=== PATIENT | female | born 1975 | race Caucasian/White ===

== ENCOUNTER 2025-02-04 12:05 | Inpatient (IN) | payer MEDICARE, MEDICAID, SELFPAY ==
[2025-02-04] VITALS (13 sets, daily range): BP systolic 116–158; BP diastolic 62–94; PULSE 82–127; RESP 18–26; TEMP 36.6–37; O2SAT 91–98; BMI 25.1
--- NOTE | ~2025-02-04 | XR_ITS ---
EXAMINATION: XR CHEST CLINICAL INFORMATION: SOB COMPARISON: None available. TECHNIQUE: AP view of the chest was obtained. FINDINGS: The cardiac, hilar, and mediastinal contours are normal. The lungs are are well inspired and clear bilaterally. No pneumothorax or effusion. No focal osseous or soft tissue abnormality. XR/XR chest 1V IMPRESSION: No active pulmonary disease. Electronically signed by: Nav Ramsay MD 02/04/2025 01:22 PM EDT
--- NOTE | 2025-02-04 12:10 | ED.SOB ---
HPI - SOB/Dyspnea General Chief Complaint: Dyspnea Stated Complaint: diff breathing, asthma Time Seen by Provider: 02/04/25 12:19 History of Present Illness ED Provider: Dr. Thomason HPI Narrative: 50 y/o F patient; PMH asthma; presents from Urgent Care with report of persistent shortness of breath. The patient states she had to go to Urgent Care yesterday and today for her breathing. She received steroids and breathing treatments, then was referred to the emergency department for further evaluation. Patient states she has not been taking her maintenence inhaler. She otherwise denies: fever or chills, nausea/vomiting, diarrhea. No known sick contacts. No recent travel. Related Data Home Medications ?Medication ?Instructions ?Recorded ?Confirmed albuterol sulfate 90 mcg/actuation 2 puff inhalation Q4H PRN wheezing 02/04/25 02/04/25 aerosol inhaler (Ventolin HFA) aripiprazole 10 mg tablet 10 mg PO DAILY 02/04/25 02/04/25 benzonatate 200 mg capsule 200 mg PO TID cough 02/04/25 02/04/25 fluticasone propionate 50 2 spray intranasal BID 02/04/25 02/04/25 mcg/actuation nasal spray,suspension hydroxyzine pamoate 25 mg capsule 25 - 50 mg PO TID PRN anxiety 02/04/25 02/04/25 ibuprofen 800 mg tablet 800 mg PO TID PRN pain 02/04/25 02/04/25 meloxicam 15 mg tablet 15 mg PO DAILY 02/04/25 02/04/25 methylphenidate HCl 18 mg 18 mg PO DAILY 02/04/25 02/04/25 tablet,extended release 24 hr methylphenidate HCl 54 mg 54 mg PO DAILY 02/04/25 02/04/25 tablet,extended release 24 hr prednisone 20 mg tablet 40 mg PO DAILY 02/04/25 02/04/25 venlafaxine 150 mg 300 mg PO DAILY 02/04/25 02/04/25 capsule,extended release 24 hr Allergies Allergy/AdvReac Type Severity Reaction Status Date / Time No Known Allergies (No Known Allergy Unverified 02/04/25 12:12 Allergies*) Review of Systems Review of Systems: Yes all other systems are reviewed and are negative PMFSH Past Medical History Attestation statement: The following information was validated with the patient. Source: unable to obtain Social History Social History Smoked in Last 30 Days: Yes Use of substances other than those prescribed or required for medical reasons: No Advance Directives: Yes Advance Directives Information Provided: Yes Advance Directives on File: No Physical Exam Vital Signs: Vital Signs: Last Vital Signs Temp 98.6 F 02/04/25 12:08 Pulse 105 H 02/04/25 14:43 Resp 20 02/04/25 14:43 BP 116/68 02/04/25 14:43 Pulse Ox 92 02/04/25 14:43 O2 Del Method Room Air 02/04/25 14:43 BMI result Body Mass Index 25.1 Patient is afebrile, tachypnic, hypoxic to 91% on RA. Const: General: cooperative and no acute distress HEENT: Head: Yes normal to inspection and Yes atraumatic Eyes: General: appearance normal, both eyes and all related structures Pupils: Equal, round and reactive pupils present EOM: EOMs intact bilaterally Neck: Neck: Yes normal visual inspection, Yes full ROM, Yes supple and No tender Chest: Chest palpation & inspection: normal inspection of the chest and normal palpation of entire chest wall Resp: Other: Speaking in halting sentences, diffuse biphasic wheezing, diminished bilaterally Cardio: Rate: regular rate Rhythm: regular rhythm Peripheral pulses: Peripheral pulses 2+ throughout GI: Inspection: Yes normal to inspection, No Abdominal wall edema and No distended Palpation (GI): Soft to palpation, not firm, nontender, no guarding and not rigid Auscultation: normal bowel sounds Back/Spine/Pelvis: Back: No back tenderness Neuro: Cranial nerves: Yes Equal, round and reactive pupils present Course Course Course Narrative: This is an RME: Additional HPI, ROS, PE not included below will be deferred to primary provider. RME assessment and note performed by: Kayce Lopez PA-C This is a 50-year-old female, with a past medical history of asthma, who presents emergency department with concerns of shortness for breath. She has coming in from urgent care, was seen yesterday and was started on prednisone, she awoke today having worsening symptoms. Patient with inspiratory and expiratory wheezing, minimal air movement. History of admission for asthma however has been many years. No history of intubation in the past for asthma. Plan: Labs, chest x-ray, viral swabs, further ER evaluation needed. Reevaluation(s) Reevaluation #1: Requested to see patient immediately due to high risk of life threatening deterioration in condition. History and exam consistent with acute asthma exacerbation. Ordered for respiratory magnesium over 15min, solumedrol 60mg IV, 1L IVF. Ordered for pCXR and screening labs. ED bronchodilator protocal ordered. Reevaluation #2: Patient frequently re-evaluated. Following initial bronchodilator patient's condition worsened. She became acutely tachycardic to the 120s, hypoxic to 85%. Ordered for bipap with improvement in WOB and hypoxia. Patient tolerating well. Repeat bronchodilator treatment provided. Labs reviewed. Mild leukocytosis suspect reactive. No significant anemia. XR is unremarkable. Bipap off at 1337. Provided 2mg Morphine for anxiolysis. Patient tolerated being off bipap for 1 hour. Plan: Admit to hospitalist Condition: Stable Medications Administered Discontinued Medications Generic Name Dose Route Start Last Admin Trade Name Freq PRN Reason Stop Dose Admin Benzonatate 200 mg 02/04/25 15:00 02/04/25 15:11 Benzonatate 100 Mg Capsule PO 02/04/25 15:01 200 mg ONCE ONE Administration Albuterol Sulfate 7.5 mg/ 0 mg 02/04/25 12:23 02/04/25 12:30 Albuterol/Ipratropium 3 ml INHALE 02/04/25 12:24 10 each ONCE ONE Administration Levalbuterol HCl 2.5 mg/ 0 mg 02/04/25 12:57 02/04/25 13:01 Ipratropium [place] 0.5 mg INHALE 02/04/25 12:58 7.5 dose ONCE ONE Administration Magnesium Sulfate 2 gm in 50 mls @ 150 mls/hr 02/04/25 12:15 02/04/25 12:53 Magnesium Sulfate/H2o IV 02/04/25 12:34 Infused ONCE ONE Infusion Sodium Chloride 1,000 mls @ 999 mls/hr 02/04/25 12:30 02/04/25 13:39 Ns IV 02/04/25 13:30 Infused .Q1H1M TIMOTHY Infusion Methylprednisolone Sodium Succinate 60 mg 02/04/25 12:15 02/04/25 12:33 Methylprednisolone Sod Succ 125 Mg/2 Ml Vial IVPUSH 02/04/25 12:16 60 mg ONCE ONE Administration Morphine Sulfate 2 mg 02/04/25 13:58 02/04/25 14:04 Morphine Sulfate 2 Mg/Ml Cartridge IVPUSH 02/04/25 13:59 2 mg ONCE ONE Administration Protocol Medical Decision Making Lab Data 02/04/25 12:11 02/04/25 12:11 Labs: Lab Results 02/04/25 Range/Units 12:11 WBC 16.3 H (4.8-10.8) X10*3/uL RBC 4.76 (4.20-5.50) X10*6/uL Hgb 14.7 (12.0-16.0) g/dl Hct 43.3 (37.0-47.0) % MCV 91.0 (80.0-98.0) fL MCH 30.9 (27.0-33.0) pg MCHC 33.9 (31.0-35.0) g/dl RDW 12.6 (11.0-16.0) % Plt Count 432 H (160-400) X10*3/uL MPV 9.5 (9.4-12.3) fL Immature Gran % (Auto) 0.2 (0.0-0.4) % Neut % (Auto) 90.3 H (45-73) % Lymph % (Auto) 6.9 L (20-40) % [place] % (Auto) 2.5 (2-11) % Eos % (Auto) 0.0 (0-4) % Baso % (Auto) 0.1 (0-2) % Lymph # (Auto) 1.1 L (1.2-4.9) X10*3/uL [place] # (Auto) 0.4 (0.1-1.2) X10*3/uL Eos # (Auto) 0.0 (0.0-0.4) X10*3/uL Baso # (Auto) 0.0 (0.0-0.2) X10*3/uL Abs Immat Gran (auto) 0.04 H (0.00-0.03) X10*3/uL Absolute Neuts (auto) 14.7 H (2.0-8.3) x10*3/uL Absolute Nucleated RBC 0.000 (0.0-0.012) X10*3/uL Nucleated RBC % (auto) 0.0 (0.0-0.2) /100WBC Smear Tech's Comments VERIFIED Sodium 140 (135-145) mmol/L Potassium 4.0 (3.3-5.1) mmol/L Chloride 109 H (96-108) mmol/L Carbon Dioxide 23 (22-29) mmol/L Anion Gap 12 (12-20) BUN 16 (9-16) mg/dL Creatinine 0.65 (0.5-1.4) mg/dL Estim Creat Clear Calc 98.0 Estimated GFR > 60 Random Glucose 135 H (60-115) mg/dL Calcium 10.1 (8.4-10.2) mg/dL Magnesium 2.0 (1.6-2.6) mg/dL Total Bilirubin 0.3 (0.0-1.0) mg/dL Direct Bilirubin 0.1 (0.0-0.5) mg/dL AST 16 (5-31) U/L ALT 21 (0-31) U/L Alkaline Phosphatase 86 (39-117) U/L Total Protein 7.5 (6.5-8.0) g/dL Albumin 4.8 (3.5-5.0) g/dL Influenza Type A (PCR) NEGATIVE (Negative) Influenza Type B (PCR) NEGATIVE (Negative) RSV RNA Qual (PCR) NEGATIVE (Negative) SARS-CoV-2 RNA (RT-PCR) NEGATIVE (Negative) Independent Interpretation I performed an independent interpretation of an: EKG Interpretation: EKG independently interpreted by myself as NSR 90BPM with marked sinus arrhythmia. Radiology Impression Discussion of test interpretation with radiology: I have reviewed the radiologist's reading. Radiologist Impression: EXAMINATION: XR CHEST CLINICAL INFORMATION: SOB COMPARISON: None available. TECHNIQUE: AP view of the chest was obtained. FINDINGS: The cardiac, hilar, and mediastinal contours are normal. The lungs are are well inspired and clear bilaterally. No pneumothorax or effusion. No focal osseous or soft tissue abnormality. XR/XR chest 1V IMPRESSION: No active pulmonary disease. Electronically signed by: Nav Ramsay MD 02/04/2025 01:22 PM EDT Critical Care Time Critical Care Time Critical Care Time: Yes Total Critical Care Time: 48 Attestation: Total critical care time: Approximately?48?minutes Due to a high probability of clinically significant, life threatening deterioration, the patient required my highest level of preparedness to intervene emergently and I personally spent this critical care time directly and personally managing the patient. This critical care time included obtaining a history; examining the patient; pulse oximetry; ordering and review of studies; arranging urgent treatment with development of a management plan; evaluation of patient's response to treatment; frequent reassessment; and, discussions with other providers. This critical care time was performed to assess and manage the high probability of imminent, life-threatening deterioration that could result in multi-organ failure. It was exclusive of separately billable procedures and treating other patients Discharge Plan Discharge Clinical Impression: Asthma with exacerbation Patient Disposition: Admitted As Inpatient Print Language: Malay
--- NOTE | 2025-02-04 12:16 | ECG_ITS ---
Test Reason : dsypnea Blood Pressure : */* mmHG Vent. Rate : 90 BPM Atrial Rate : 90 BPM P-R Int : 124 ms QRS Dur : 68 ms QT Int : 366 ms P-R-T Axes : 78 28 57 degrees QTcB Int : 447 ms Sinus rhythm with marked sinus arrhythmia Otherwise normal ECG No previous ECGs available Referred By: Kayce Lopez Electronically Signed By: ARIE GARCIA MD
[2025-02-04] MEDS: Albuterol Sulfate 7.5 MG, Albuterol/Iprat 2.5/0.5MG 3 ML 3 ML INHALE (12:30)
[2025-02-04] MEDS: Magnesium Sulfate/H2O 2 GM/50 ML PIGGYBACK IV (12:33)
--- NOTE | 2025-02-04 12:33 | PC.NURSE ---
Patient brought from triage to room 17 via w/c. patient reports hx of asthma with cough and SOB over the past week, worse today. using home inhalers without relief. Patient tachypneic with accessory muscle use. Lungs tight w/ insp/exp wheezes throughout. RT called and physician to bedside. IV established, labs obtained and patient medicated per via tele
[2025-02-04 12:35] LABS: Hematocrit 43.3 % (37.0-47.0); Hemoglobin 14.7 g/dl (12.0-16.0); Imm Gran Abs Auto 0.04 X10*3/uL (0.00-0.03); Imm Gran Pct Auto 0.2 % (0.0-0.4); Lymphocytes Absolute Auto 1.1 X10*3/uL (1.2-4.9); MANUAL DIFF FLAG SCAN; Mean Corpuscular HGB Conc 33.9 g/dl (31.0-35.0); Mean Corpuscular Hemoglobin 30.9 pg (27.0-33.0); Mean Corpuscular Volume 91.0 fL (80.0-98.0); NRBC Abs Auto 0.000 X10*3/uL (0.0-0.012); NRBC Pct Auto 0.0 /100WBC (0.0-0.2); Platelet Count 432 X10*3/uL (160-400); Red Blood Count 4.76 X10*6/uL (4.20-5.50); SCAN SMEAR FLAG 1; White Blood Count 16.3 X10*3/uL (4.8-10.8)
--- NOTE | 2025-02-04 12:45 | PC.NURSE ---
Patient w/ coughing episode after finishing her breathing tx causing SOB, increased work of breathing, lungs tight w/ insp/exp wheezes throughout. mag infusing per order. physician and RT to bedside. plan for Bipap. patient breathing is more controlled at this time, resp rate even and labored at 22. ST via tele. patient able to speak in short sentences. patient aware and agreeable to plan for bipap.
--- NOTE | 2025-02-04 12:50 | PC.NURSE ---
Bipap 10/5, rate 12, O2 30% Patient tolerating well at this time. ST via tele at 113. plan is for xopenex
[2025-02-04 12:56] LABS: Alanine Aminotransferase 21 U/L (0-31); Albumin Level 4.8 g/dL (3.5-5.0); Alkaline Phosphatase 86 U/L (39-117); Anion Gap 12 (12-20); Aspartate Amino Transferase 16 U/L (5-31); Blood Urea Nitrogen 16 mg/dL (9-16); Calcium 10.1 mg/dL (8.4-10.2); Carbon Dioxide 23 mmol/L (22-29); Chloride 109 mmol/L (96-108); Creatinine Clr Calc Pharmacy 98.0; Estimated Glomerular Filt Rate > 60; Magnesium 2.0 mg/dL (1.6-2.6); Potassium 4.0 mmol/L (3.3-5.1); Sodium 140 mmol/L (135-145); Total Protein 7.5 g/dL (6.5-8.0)
[2025-02-04] MEDS: levalbuterol HCL 2.5 MG, Ipratropium Bromide 0.5 MG INHALE (13:01)
[2025-02-04 13:10] LABS: Resp Syncy Virus RNA Qual PCR NEGATIVE (Negative); SARS COV2 PCR INHOUSE NEGATIVE (Negative)
--- NOTE | 2025-02-04 13:40 | PC.NURSE ---
Bipap removed at this time per Dr. Thomason Patient awake and alert. skin pwd, resp even and labored at 22. lungs w/ rhonchi and exp wheezes throughout, although there is increased air movement. ST via tele.
--- NOTE | 2025-02-04 14:10 | PC.NURSE ---
pt medicated w/ morphine at ordered for cough
--- NOTE | 2025-02-04 14:26 | PC.NURSE ---
cough improved post morphine. patient aware of plan for admission
--- NOTE | 2025-02-04 14:27 | HO.NURTONUR ---
Addendum entered by Martina Lafleur RN 02/04/25 19:52: patient currently on 2L NC. Original Note: Alert and oriented 50 year old female coming from home. patient reports hx of asthma with cough and SOB over the past week, worse today. using home inhalers without relief. On arrival Patient tachypneic with accessory muscle use. Lungs tight w/ insp/exp wheezes throughout. ST via tele. 20g IV to left forearm w/ no meds currently infusing. Patient received solumedrol, mag, 1l NS, and 2 breathing tx's by RT. Patient was placed on bipap for approximately 50 minutes, tolerated well, now on room air. Patients cough triggering worsening SOB, morphine given with positive effect.
--- NOTE | 2025-02-04 15:25 | PHA.MEDREC ---
Addendum entered by Kemi Kaiser RPh 02/04/25 15:31: MED REC REVIEWED BY [facility] Original Note: Pharmacy Consult ? Medication Reconciliation Pharmacy has completed the medication reconciliation. Spoke with pt and pt sadie over the phone and pt sadie was able to read off Rx bottles what pt is taking for her medications and pt confirmed directions on how she takes them. Pt started the Prednisone 20mg regimen 2 tabs (40mg) QD for 5 days yesterday. Pt states she still has and takes Meloxican 15mg tabs QD.
--- NOTE | 2025-02-04 15:44 | PM.IMHP ---
History of Present Illness Date of Service: 02/04/25 Attending physician on admission: Tevin Zambrano Chief Complaint: sob This is a 50-year-old female with a history of asthma who presents to the emergency department with shortness of breath. Shortness of breath has been going on for ?too long Last week she saw her PCP who prescribed her prednisone taper which she completed but her symptoms did not significantly improve. She has been using her rescue inhaler numerous times throughout the day but has had persistent shortness of breath despite this. She reports an associated cough. She denies any fever, chills, or recent sick contacts. In the emergency department she was tachycardic, tachypneic. She was treated with multiple updraft treatments, IV magnesium and IV Solu-Medrol. She was briefly placed on BiPAP due to increased work of breathing was able to be weaned off in his currently saturating in the mid 90s on room air. She denies any recent asthma exacerbations or recent lesions for asthma. She has never been. She has persistent wheezing and will be admitted to the hospital for further treatment. Review of Systems Review of Systems: Yes all other systems are reviewed and are negative Constitutional: Constitutional: Denies chills and Denies fever(s) Cardiovascular: Cardiovascular: Reports dyspnea Respiratory: Respiratory: Reports cough and Reports dyspnea [facility] Medical History (Updated 02/04/25 @ 15:47 by CHACORTA Miranda) Anxiety Depression TBI (traumatic brain injury) Asthma Social History Smoked in Last 30 Days: Yes Use of substances other than those prescribed or required for medical reasons: No Advance Directives: Yes Advance Directives Information Provided: Yes Advance Directives on File: No Meds Allergies Allergy/AdvReac Type Severity Reaction Status Date / Time No Known Allergies (No Known Allergy Unverified 02/04/25 12:12 Allergies*) Active Medications: Current Medications Acetaminophen (Acetaminophen 325 Mg Tablet) 650 mg PO Q6H PRN PRN Reason: Pain, Mild 1-3,fever,headache Albuterol/Ipratropium (Albuterol/Iprat 2.5/0.5mg 3 Ml Ampul.Neb) 3 ml INHALE RQ4H WHILE AWAKE TIMOTHY Calcium Carbonate (Calcium Carbonate 750 Mg Tab.Chew) 750 mg PO Q4H PRN PRN Reason: Heartburn Enoxaparin Sodium (Enoxaparin Sodium 40 Mg/0.4 Ml Syringe) 40 mg SUBCUT Q24H [facility] Levalbuterol HCl (Levalbuterol Hcl 1.25 Mg/3 Ml Vial.Neb) 1.25 mg INHALE Q4H PRN PRN Reason: Shortness of Breath/Wheezing Magnesium Hydroxide (Milk Of Magnesia 30 Ml Oral.Susp) 30 ml PO DAILY PRN PRN Reason: Constipation Melatonin (Melatonin 3 Mg Tablet) 6 mg PO BEDTIME PRN PRN Reason: Insomnia Methylprednisolone Sodium Succinate (Methylprednisolone Sod Succ 40 Mg/Ml Vial) 40 mg IVPUSH Q12H [facility] Sodium Chloride (0.9 % Sodium Chloride Flush 3 Ml Syringe) 3 ml IVFLUSH QSHIFT [facility] Home Medications ?Medication ?Instructions ?Recorded ?Confirmed ?Last Taken ?Type albuterol sulfate 90 mcg/actuation 2 puff inhalation Q4H PRN wheezing 02/04/25 02/04/25 02/03/25 History aerosol inhaler (Ventolin HFA) aripiprazole 10 mg tablet 10 mg PO DAILY 02/04/25 02/04/25 02/03/25 History benzonatate 200 mg capsule 200 mg PO TID cough 02/04/25 02/04/25 02/03/25 History fluticasone propionate 50 2 spray intranasal BID 02/04/25 02/04/25 02/03/25 History mcg/actuation nasal spray,suspension hydroxyzine pamoate 25 mg capsule 25 - 50 mg PO TID PRN anxiety 02/04/25 02/04/25 02/03/25 History ibuprofen 800 mg tablet 800 mg PO TID PRN pain 02/04/25 02/04/25 02/03/25 History meloxicam 15 mg tablet 15 mg PO DAILY 02/04/25 02/04/25 02/03/25 History methylphenidate HCl 18 mg 18 mg PO DAILY 02/04/25 02/04/25 02/03/25 History tablet,extended release 24 hr methylphenidate HCl 54 mg 54 mg PO DAILY 02/04/25 02/04/25 02/03/25 History tablet,extended release 24 hr prednisone 20 mg tablet 40 mg PO DAILY 02/04/25 02/04/25 02/03/25 History venlafaxine 150 mg 300 mg PO DAILY 02/04/25 02/04/25 02/03/25 History capsule,extended release 24 hr Physical Exam Vital Signs and Narrative: Vital Signs: Last Vital Signs Temp 98.6 F 02/04/25 12:08 Pulse 105 H 02/04/25 14:43 Resp 20 02/04/25 14:43 BP 116/68 02/04/25 14:43 Pulse Ox 92 02/04/25 14:43 O2 Del Method Room Air 02/04/25 14:43 BMI result Body Mass Index 25.1 Const: General: alert and awake Nutritional Appearance: average body habitus Orientation/consciousness: patient oriented x3 Resp: Other: mild distress; diffuse b/l wheezing Effort & Inspection: uses accessory muscles Cardio: Rate: tachycardic GI: Palpation (GI): Soft to palpation and nontender Neuro: Other: grossly nonfocal General: patient oriented x3 Results Labs 02/04/25 12:11 02/04/25 12:11 Labs: Laboratory Results - last 24 hr 02/04/25 12:11 MCV 91.0 MCH 30.9 MCHC 33.9 RDW 12.6 Plt Count 432 H MPV 9.5 Immature Gran % (Auto) 0.2 Neut % (Auto) 90.3 H Lymph % (Auto) 6.9 L [place] % (Auto) 2.5 Eos % (Auto) 0.0 Baso % (Auto) 0.1 Lymph # (Auto) 1.1 L [place] # (Auto) 0.4 Eos # (Auto) 0.0 Baso # (Auto) 0.0 Abs Immat Gran (auto) 0.04 H Absolute Neuts (auto) 14.7 H Absolute Nucleated RBC 0.000 Nucleated RBC % (auto) 0.0 Smear Tech's Comments VERIFIED Anion Gap 12 Estim Creat Clear Calc 98.0 Estimated GFR > 60 Random Glucose 135 H Calcium 10.1 Magnesium 2.0 Total Bilirubin 0.3 Direct Bilirubin 0.1 AST 16 ALT 21 Alkaline Phosphatase 86 Total Protein 7.5 Albumin 4.8 Influenza Type A (PCR) NEGATIVE Influenza Type B (PCR) NEGATIVE RSV RNA Qual (PCR) NEGATIVE SARS-CoV-2 RNA (RT-PCR) NEGATIVE Imaging Radiologist's Impressions: Impressions Chest X-Ray 02/04/25 13:08 IMPRESSION: No active pulmonary disease. Electronically signed by: Nav Ramsay MD 02/04/2025 01:22 PM EDT RP Assessment and Plan (1) Asthma with exacerbation: Status: Acute Plan This is a 50-year-old female with a history of asthma, TBI, anxiety, depression who presents to the emergency department with 2 week history of shortness of breaths Acute exacerbation of mild intermittent asthma Chest x-ray negative for pneumonia check RPP scheduled and prn breathing treatments systemic steroids no hypoxia Leukocytosis Likely due to recent steroid use not sepsis Mood Continue baseline medications hold methylphenidate for tachycardia dvt ppx - lovenox code status - full code Quality Stroke Does the patient have a stroke diagnosis?: No VTE Prior VTE?: No VTE Risk Level:: Medical - moderate - high VTE Device Contraindication: N/A - Device Ordered VTE Drug Contraindication: N/A - Med Ordered
[2025-02-04] MEDS: 0.9 % Sodium Chloride Flush 3 ML SYRINGE IVFLUSH ×2 (16:41→21:33)
[2025-02-04] MEDS: Albuterol/Iprat 2.5/0.5MG 3 ML AMPUL.NEB INHALE ×2 (17:27→18:49)
--- NOTE | 2025-02-04 19:08 | PC.NURSE ---
Addendum entered by Martina Lafleur RN 02/04/25 19:10: RT at bedside now. Original Note: patient reported having difficulty breathing after using commode, offered patient to use either bed johnson/purewick in future and patient refused. patient had just received a breathing tx from RT without improvement. RT notified, in agreement to place patient on 2L NC for now. sats 92% on RA, 96% on 2L NC.
--- NOTE | 2025-02-04 20:15 | PC.NURSE ---
patient reported feeling anxious, tearful, PRN hydroxyzine given and scheduled tessalon pearls for cough. patient states sx are improving. sats 95% on 2L, vitals as documented. patient verbalized she does not want to go back on the bipap. lung sounds slight expiratory wheezing, upper lobes cta.
[2025-02-05] VITALS (10 sets, daily range): BP systolic 104–133; BP diastolic 56–71; PULSE 87–112; RESP 16–20; TEMP 36.3–36.6; O2SAT 92–99
[2025-02-05] MEDS: Albuterol/Iprat 2.5/0.5MG 3 ML AMPUL.NEB INHALE ×4 (07:34→18:35)
[2025-02-05] MEDS: Venlafaxine HCl ER 150 MG CAP.ER.24H 300 MG PO (08:13)
--- OUTSIDE RECORDS SUMMARY | 2025-02-05 08:30 | XMS_ITS ---
Author Name [facility] Organization Unknown Encounters Encounter Type Encounter Reason Primary Diagnosis Location Date Ambulatory TBE Unspecified asth ma with (acute) exacerbation [facility] ([facility]) 02/04/2025 Ambulatory TBE Unspecified asth ma with (acute) exacerbation [facility] ([facility]) 02/03/2025 Care Team Organization Name Specialty Phone Email Start Date End Da te [facility] 02/03/2025
--- NOTE | 2025-02-05 08:41 | HO.PM.IMPN ---
Subjective Subjective Date of Service: 02/05/25 Interval History: still very sob Physical Exam Exam: Exam: General: AO X 3, in acute distress, speaking in limited sentences Resp: poor air movement and wheezing bilateral, accessory muscles used CVS: S1,S2,RRR GI: soft, non tender, non distended Neuro: motor grossly intact, alert Psych: appropriate affect, appropriate insight Vital Signs: Vital Signs: Last Vital Signs Temp 97.9 F 02/05/25 06:43 Pulse 112 H 02/05/25 07:37 Resp 16 02/05/25 07:37 BP 112/68 02/05/25 06:43 Pulse Ox 94 02/05/25 06:43 O2 Del Method Room Air 02/05/25 06:43 O2 Flow Rate 2 02/04/25 20:11 BMI result Body Mass Index 25.1 Objective Data Active Medications Acetaminophen (Acetaminophen 325 Mg Tablet) 650 mg PO Q6H PRN PRN Reason: Pain, Mild 1-3,fever,headache Albuterol/Ipratropium (Albuterol/Iprat 2.5/0.5mg 3 Ml Ampul.Neb) 3 ml INHALE RQ4H WHILE AWAKE [facility] Last Admin: 02/05/25 07:34 Dose: 3 ml Documented By: PARAS Aripiprazole (Aripiprazole 10 Mg Tablet) 10 mg PO DAILY [facility] Last Admin: 02/05/25 08:13 Dose: 10 mg Documented By: REBECCA Benzonatate (Benzonatate 100 Mg Capsule) 200 mg PO TID [facility] Last Admin: 02/05/25 08:13 Dose: 200 mg Documented By: REBECCA Benzonatate (Benzonatate 100 Mg Capsule) 100 mg PO TID PRN PRN Reason: Cough Last Admin: 02/05/25 03:45 Dose: 100 mg Documented By: LORI Calcium Carbonate (Calcium Carbonate 750 Mg Tab.Chew) 750 mg PO Q4H PRN PRN Reason: Heartburn Enoxaparin Sodium (Enoxaparin Sodium 40 Mg/0.4 Ml Syringe) 40 mg SUBCUT Q24H [facility] Last Admin: 02/04/25 16:41 Dose: 40 mg Documented By: BRIGIDO Fluticasone Propionate (Fluticasone Propionate Nasal 16 Gm [place]) 2 spray NOSTRIL-B BID [facility] Last Admin: 02/04/25 21:36 Dose: Not Given Documented By: LORI Non-Admin Reason: Med Not Available Hydroxyzine HCl (Hydroxyzine Hcl 50 Mg Tablet) 50 mg PO TID PRN PRN Reason: Anxiety Last Admin: 02/04/25 20:09 Dose: 50 mg Documented By: YUSEF Levalbuterol HCl (Levalbuterol Hcl 1.25 Mg/3 Ml Vial.Neb) 1.25 mg INHALE Q4H PRN PRN Reason: Shortness of Breath/Wheezing Last Admin: 02/05/25 04:00 Dose: 1.25 mg Documented By: EDUARD Magnesium Hydroxide (Milk Of Magnesia 30 Ml Oral.Susp) 30 ml PO DAILY PRN PRN Reason: Constipation Melatonin (Melatonin 3 Mg Tablet) 6 mg PO BEDTIME PRN PRN Reason: Insomnia Methylprednisolone Sodium Succinate (Methylprednisolone Sod Succ 40 Mg/Ml Vial) 40 mg IVPUSH Q12H [facility] Last Admin: 02/04/25 23:31 Dose: 40 mg Documented By: LORI Naproxen (Naproxen 500 Mg Tablet) 500 mg PO BID [facility] Last Admin: 02/05/25 08:13 Dose: 500 mg Documented By: REBECCA Sodium Chloride (0.9 % Sodium Chloride Flush 3 Ml Syringe) 3 ml IVFLUSH QSHIFT [facility] Last Admin: 02/05/25 08:16 Dose: Not Given Documented By: REBECCA Non-Admin Reason: Previously Administered Venlafaxine HCl (Venlafaxine Hcl Er 150 Mg Cap.Er.24h) 300 mg PO DAILY [facility] Last Admin: 02/05/25 08:13 Dose: 300 mg Documented By: REBECCA Labs 02/04/25 12:11 02/04/25 12:11 Labs: Laboratory Results - last 24 hr 02/04/25 12:11 MCV 91.0 MCH 30.9 MCHC 33.9 RDW 12.6 Plt Count 432 H MPV 9.5 Immature Gran % (Auto) 0.2 Neut % (Auto) 90.3 H Lymph % (Auto) 6.9 L [place] % (Auto) 2.5 Eos % (Auto) 0.0 Baso % (Auto) 0.1 Lymph # (Auto) 1.1 L [place] # (Auto) 0.4 Eos # (Auto) 0.0 Baso # (Auto) 0.0 Abs Immat Gran (auto) 0.04 H Absolute Neuts (auto) 14.7 H Absolute Nucleated RBC 0.000 Nucleated RBC % (auto) 0.0 Smear Tech's Comments VERIFIED Anion Gap 12 Estim Creat Clear Calc 98.0 Estimated GFR > 60 Random Glucose 135 H Calcium 10.1 Magnesium 2.0 Total Bilirubin 0.3 Direct Bilirubin 0.1 AST 16 ALT 21 Alkaline Phosphatase 86 Total Protein 7.5 Albumin 4.8 Influenza Type A (PCR) NEGATIVE Influenza Type B (PCR) NEGATIVE RSV RNA Qual (PCR) NEGATIVE SARS-CoV-2 RNA (RT-PCR) NEGATIVE Assessment and Plan (1) Asthma with exacerbation: Status: Acute Plan 50F PMH mild intermittent asthma presented with sob Mild intermittent asthma with acute decompensation Continue Solu-Medrol, DuoNebs Patient still in significant distress and actively wheezing with poor air movement, will change to inpatient Mood disorder Abilify, venlafaxine DVT prophylaxis with Lovenox Full code reason for continued hospitalization: Given respiratory distress and poor air movement we will continue inpatient treatment with IV steroids DuoNebs and close monitoring Quality Stroke Does the patient have a stroke diagnosis?: No VTE Prior VTE?: No VTE Risk Level:: Medical - moderate - high VTE Device Contraindication: N/A - Device Ordered VTE Drug Contraindication: N/A - Med Ordered
[2025-02-05 09:20] LABS: Chlamydia pneumoniae PCR Not Detected (Not Detect.); Coronavirus 229E PCR Not Detected (Not Detect.); Coronavirus HKU1 PCR Not Detected (Not Detect.); Coronavirus NL63 PCR Not Detected (Not Detect.); Coronavirus OC43 PCR Not Detected (Not Detect.); RSV PCR Not Detected (Not Detect.); Rhino/Enterovirus PCR Not Detected (Not Detect.); SARS-CoV-2 PCR Not Detected (Not Detect.)
[2025-02-05 09:21] LABS: Influenza A H1 PCR Not Detected (Not Detect.); Influenza A H1-2009 PCR Not Detected (Not Detect.); Influenza A H3 PCR Not Detected (Not Detect.)
[2025-02-05] MEDS: guaiFENesin DM 100/10/5 ML 5 ML SYRUP PO ×2 (11:58→16:56)
--- NOTE | 2025-02-05 14:30 | MHC.CM.PN ---
IMM delivered. Patient lives in a home w/ her S.O. and a friend. Independent. Denies use of DME or services. PCP Rhiannon Chang MD Reports she has an HCP naming her S.O. Tommy as HCA. Copy requested. DP: Goal is home self care. Family transport. CM will continue to follow.
[2025-02-05] MEDS: 0.9 % Sodium Chloride Flush 3 ML SYRINGE IVFLUSH ×2 (15:52→20:24)
[2025-02-06 00:57] VITALS: PULSE 83; RESP 20; O2SAT 95
[2025-02-06] MEDS: guaiFENesin DM 100/10/5 ML 5 ML SYRUP PO ×2 (00:57→05:46)
[2025-02-06 03:19] VITALS: BP 114/53; PULSE 78; RESP 18; TEMP 36.3; O2SAT 92
[2025-02-06 06:04] VITALS: PULSE 83; RESP 18; O2SAT 94
[2025-02-06 06:29] LABS: Hematocrit 37.2 % (37.0-47.0); Hemoglobin 12.3 g/dl (12.0-16.0); Mean Corpuscular HGB Conc 33.1 g/dl (31.0-35.0); Mean Corpuscular Hemoglobin 30.8 pg (27.0-33.0); Mean Corpuscular Volume 93.2 fL (80.0-98.0); NRBC Abs Auto 0.000 X10*3/uL (0.0-0.012); NRBC Pct Auto 0.0 /100WBC (0.0-0.2); Platelet Count 335 X10*3/uL (160-400); Red Blood Count 3.99 X10*6/uL (4.20-5.50); White Blood Count 10.7 X10*3/uL (4.8-10.8)
[2025-02-06 06:48] LABS: Anion Gap 13 (12-20); Blood Urea Nitrogen 20 mg/dL (9-16); Carbon Dioxide 23 mmol/L (22-29); Chloride 109 mmol/L (96-108); Creatinine Clr Calc Pharmacy 96.5; Estimated Glomerular Filt Rate > 60; Potassium 4.2 mmol/L (3.3-5.1); Sodium 141 mmol/L (135-145)
[2025-02-06 06:53] LABS: Calcium 8.9 mg/dL (8.4-10.2)
[2025-02-06 07:57] VITALS: BP 134/69; PULSE 97; RESP 18; TEMP 36.2; O2SAT 93
--- NOTE | 2025-02-06 08:27 | P.DS_ITS ---
DS: Providers Provider Date of Service: 02/06/25 Date of admission: 02/04/25 15:32 Date of discharge: 02/06/25 Primary care physician: Rhiannon Chang MD DS: Diagnosis Discharge Diagnosis (1) Asthma with exacerbation: Status: Acute DS: Summary Hospital Course Hospital Course: from initial hpi: 50-year-old female with a history of asthma who presents to the emergency department with shortness of breath. Shortness of breath has been going on for ?too long Last week she saw her PCP who prescribed her prednisone taper which she completed but her symptoms did not significantly improve. She has been using her rescue inhaler numerous times throughout the day but has had persistent shortness of breath despite this. She reports an associated cough. She denies any fever, chills, or recent sick contacts. In the emergency department she was tachycardic, tachypneic. She was treated with multiple updraft treatments, IV magnesium and IV Solu-Medrol. She was briefly placed on BiPAP due to increased work of breathing was able to be weaned off in his currently saturating in the mid 90s on room air. She denies any recent asthma exacerbations or recent lesions for asthma. She has never been. She has persistent wheezing and will be admitted to the hospital for further treatment. hospital course: Asthma with acute decompensation. Was treated with IV Solu-Medrol and DuoNebs and eventually symptoms improved. Will be discharged on 5 more days of prednisone. She is instructed to try to avoid allergens. For mood disorder was continued on Abilify and venlafaxine. Time Attestation Discharge Coordination Time (in mins): 33 Quality: Safe Use of Opioids Does Pt have an Active Cancer Diagnosis on the Problem List?: No Quality: Stroke Does the patient have a stroke diagnosis?: No Physical Exam Exam: Exam: General: AO X 3, no acute distress Resp: CTA bilateral, no accessory muscles used CVS: S1,S2,RRR GI: soft, non tender, non distended Neuro: motor grossly intact, alert Psych: appropriate affect, appropriate insight Vital Signs: Vital Signs: Last Vital Signs Temp 97.1 F 02/06/25 07:57 Pulse 97 02/06/25 07:57 Resp 18 02/06/25 07:57 BP 134/69 02/06/25 07:57 Pulse Ox 93 02/06/25 07:57 O2 Del Method Room Air 02/06/25 07:57 O2 Flow Rate 2 02/04/25 20:11 BMI result Body Mass Index 25.1 DS: Data Data Completed and Pending Labs on day of discharge: Laboratory Results - last 24 hr 02/04/25 02/06/25 16:27 05:43 WBC 10.7 RBC 3.99 L Hgb 12.3 Hct 37.2 MCV 93.2 MCH 30.8 MCHC 33.1 RDW 13.0 Plt Count 335 MPV 10.0 Absolute Nucleated RBC 0.000 Nucleated RBC % (auto) 0.0 Sodium 141 Potassium 4.2 Chloride 109 H Carbon Dioxide 23 Anion Gap 13 BUN 20 H Creatinine 0.66 Estim Creat Clear Calc 96.5 Estimated GFR > 60 Random Glucose 146 H Calcium 8.9 D Respiratory Panel [place] See Note Adenovirus (Rapid PCR) Not Detected B.pert (TEM-PCR) Not Detected B.parapertussis DNA PCR Not Detected C. pneumoniae DNA (PCR) Not Detected Coronavirus OC43 (PCR) Not Detected Coronavirus HKU1 (PCR) Not Detected Coronavirus 229E (PCR) Not Detected Coronavirus NL63 (PCR) Not Detected Human Metapneumovir PCR Not Detected Influenza A (RT-PCR) Not Detected Influenza A (H1) PCR Not Detected Influ A (H1/09) PCR Not Detected Influenza A (H3) PCR Not Detected Influenza B (RT-PCR) Not Detected M. pneumoniae (PCR) Not Detected Parainfluenza 1 (PCR) Not Detected Parainfluenza 2 (PCR) Not Detected Parainfluenza 3 (PCR) Not Detected Parainfluenza 4 (PCR) Not Detected RSV (PCR) Not Detected Entero/Rhino (PCR) Not Detected SARS-CoV-2 RNA (RT-PCR) Not Detected Discharge Plan Discharge Anticipated Discharge Date/Time: 02/06/25 08:23 Patient Disposition: Home, Self-Care Discharge Diagnosis: asthma Referrals: Rhiannon Chang MD [Primary Care Provider, Medical] - 1 Week Discharge Medications: New benzonatate 100 mg Capsule 100 mg PO TID PRN (Reason: Cough) 5 Days Qty: 10 0RF Breo Ellipta 50-25 mcg/dose blister with device 1 inh inhalation DAILY Qty: 60 0RF ipratropium-albuterol 0.5 mg-3 mg(2.5 mg base)/3 mL Solution For Nebulization 3 ml inhalation RQ4H WHILE AWAKE Qty: 30 0RF Continued ibuprofen 800 mg tablet 800 mg PO TID PRN (Reason: pain) benzonatate 200 mg capsule 200 mg PO TID venlafaxine 150 mg capsule,extended release 24hr 300 mg PO DAILY methylphenidate HCl 54 mg tablet extended release 24hr 54 mg PO DAILY albuterol sulfate [Ventolin HFA] 90 mcg/actuation HFA aerosol inhaler 2 puff inhalation Q4H PRN (Reason: wheezing) methylphenidate HCl 18 mg tablet extended release 24hr 18 mg PO DAILY fluticasone propionate 50 mcg/actuation spray,suspension 2 spray intranasal BID hydroxyzine pamoate 25 mg capsule 25 - 50 mg PO TID PRN (Reason: anxiety) aripiprazole 10 mg tablet 10 mg PO DAILY meloxicam 15 mg tablet 15 mg PO DAILY prednisone 20 mg tablet 40 mg PO DAILY 5 Days Qty: 10 0RF Discharge Orders: Discharge Order (Routine); Ordered 02/06/25 Ordered By: Tevin Zambrano Diet: Advance to usual diet Activity on Discharge: As tolerated Stand Alone Forms: Patient Portal Discharge page Print Language: Ukrainian Care Plan Goals: recovery Health Concerns: asthma Plan of Treatment: 5 days prednisone Assessment: see above
--- NOTE | 2025-02-06 08:30 | MHC.CM.PN ---
Patient medically cleared for dc home self care via private transport.
[2025-02-06] MEDS: Venlafaxine HCl ER 150 MG CAP.ER.24H 300 MG PO (08:31)
== END 2025-02-06 08:53 | disposition home or self-care (01) | DRG 203 ==
LOC: HO.ED 15:07 → HO.EDOVER 16:22 → HO.S3 20:16 → HO.EDOVER 02-05 08:28 → HO.S3 02-05 08:28
PROVIDERS: Physician Assistant Medical; Admitting Provider Physician Assistant Medical; Emergency Provider Emergency Medicine; PCP Internal Medicine; Visit Provider Internal Medicine
DX: J45.21 Mild intermittent asthma with (acute) exacerbation (principal); F39 Unspecified mood [affective] disorder; Z20.822 Contact with and (suspected) exposure to COVID-19; Z79.51 Long term (current) use of inhaled steroids; Z79.899 Other long term (current) drug therapy
CPT/HCPCS: 36415; 71045; 80048; 80076; 83735; 85025; 85027; 87633; 87637; 93005; 94640; 99285; J1650; J2270; J2919; J3475

== ENCOUNTER → 2025-02-04 12:16 | Outpatient (BNV) | payer MEDICARE, MEDICAID, SELFPAY | PROVIDERS: Emergency Provider Emergency Medicine; PCP Internal Medicine; Visit Provider Internal Medicine Cardiovascular Disease | DX: R06.00 Dyspnea, unspecified (principal) | CPT/HCPCS: 93010 ==

== ENCOUNTER → 2025-02-04 12:17 | Outpatient (BNV) | payer MEDICARE, MEDICAID, SELFPAY | PROVIDERS: Emergency Provider Emergency Medicine; PCP Internal Medicine; Visit Provider Radiology Diagnostic Radiology | DX: R06.02 Shortness of breath (principal) | CPT/HCPCS: 71045 ==

== ENCOUNTER → 2025-02-04 15:32 | Outpatient (BNV) | payer MEDICARE, MEDICAID, SELFPAY | PROVIDERS: Admitting Provider Physician Assistant Medical; Emergency Provider Emergency Medicine; PCP Internal Medicine; Visit Provider Physician Assistant Medical | DX: J45.901 Unspecified asthma with (acute) exacerbation (principal) | CPT/HCPCS: 99223; 99239 ==